=== PATIENT | female | born 1995 | race Caucasian/White ===

== ENCOUNTER 2017-02-22 08:06 | Emergency (ER) | payer SELFPAY ==
[~2017-02-22] VITALS: Wt 46.5 kg
[~2017-02-22 08:06] MED LIST: PENICILLIN V500 MG PO; PRENATAL1 TA2 PO; ZOFRAN ODT4 MG PO; ZOFRAN4 M1 PO; [UNRECOGNIZED DRUG - OTHER] PO
[2017-02-22] MEDS ORDERED: CELEXA 20MG20 MG/TA1 PO (08:15)
[2017-02-22] MEDS ORDERED: ALPRAZOLAM0.25 MG PO (08:15)
[2017-02-22] MEDS ORDERED: TAMIFLU 75MG75 MG PO (08:16)
[2017-02-22] MEDS ORDERED: ALBUTEROL SULFAT3 M3 IH (09:34)
[2017-02-22] MEDS ORDERED: inhaler (09:34)
[2017-02-22] MEDS ORDERED: AZITHROMYCIN 250MGPK PO (09:49)
[2017-02-22] MEDS ORDERED: GUAIFEN/CODEIN120 ML PO (09:49)
[2017-02-22 10:36] VITALS: BP 123/62
== END 2017-02-22 10:49 | disposition home or self-care (01) ==
LOC: ED 08:06
DX: J11.00 Influenza due to unidentified influenza virus with unspecified type of pneumonia (principal); F17.210 Nicotine dependence, cigarettes, uncomplicated; F32.9 Major depressive disorder, single episode, unspecified

== ENCOUNTER 2018-06-08 07:28 | Emergency (ER) | payer BC ==
[~2018-06-08] VITALS: Ht 152.4 cm; Wt 45.5 kg
[~2018-06-08 07:28] MED LIST changes: +ALBUTEROL SULFAT3 M3 IH; +ALPRAZOLAM0.25 MG PO; +AZITHROMYCIN 250MGPK PO; +CELEXA 20MG20 MG/TA1 PO; +GUAIFEN/CODEIN120 ML PO; +TAMIFLU 75MG75 MG PO; +inhaler
[2018-06-08] MEDS ORDERED: VENLAFAXINE HYD75 MG PO (07:40)
[2018-06-08] MEDS ORDERED: PROPRANOLOL HCL20 M2 PO (07:40)
[2018-06-08] MEDS ORDERED: IPRATROPIUM BROM3 M1 IH (07:59)
[2018-06-08] MEDS ORDERED: TUSSIONEX PENN115 ML PO (07:59)
[2018-06-08] MEDS ORDERED: TESSALON PERLE100 M1 PO (07:59)
[2018-06-08] MEDS ORDERED: PREDNISONE20 MG PO (07:59)
[2018-06-08 08:09] VITALS: BP 106/61
== END 2018-06-08 08:02 | disposition home or self-care (01) ==
LOC: ED 07:28
DX: J20.9 Acute bronchitis, unspecified (principal); F17.210 Nicotine dependence, cigarettes, uncomplicated; Z76.0 Encounter for issue of repeat prescription; Z79.899 Other long term (current) drug therapy